=== PATIENT | female | born 1980 | race Caucasian/White ===

== ENCOUNTER → 2022-01-27 | Outpatient (CLI) | payer BC ==
[2015-07-19 21:32] VITALS: BP 119/61
[~2022-01-27] MED LIST: HYDR-3164 PO; NAPR-683 PO; NITR100C62 PO
--- NOTE | 2022-01-27 16:26 | KCIC ---
CT abdomen and pelvis without contrast PQRS statement: CT scans at this facility use dose reduction including either automated exposure cont rol, iterative reconstructions, and /or weight based radiation dosing via mA and kV modification when appropriate to reduce radiation dose to as low as reasonably achievable. HISTORY: Acute right flank pain. COMPARISON: CT abdomen March 11, 2013. Abdomen findings: Pancreas, spleen, liver, gallbladder, adrenal glands unremarkable. No urinary calcu li, hydronephrosis or perinephric stranding edema. Appendix is normal. No obstruction or inflammation GI tract. Lung bases and bones are unremarkable. Pelvis findings: Retroverted uterus. Ovaries poorly visualized due to surrounding pelvic bowel loops. No bladder calculi. Pelvic phleboliths. Rectum and bones are unremarkable. No pelvic fluid. IMPRESSION: No acute process. Appendix is normal. No urinary calculi or hydronephrosis. Electronically signed by: August Patel MD (01/27/2022 4:24 PM) [facility]
== END ==
LOC: KCIC CT 13:15
PROVIDERS: ATTEND Nurse Practitioner
DX: N85.4 Malposition of uterus (principal)
CPT/HCPCS: 74176

== ENCOUNTER 2022-02-14 08:41 | Emergency (ER) | payer BC ==
[~2022-02-14] VITALS: Ht 172.7 cm; Wt 68.0 kg
[2022-02-14] MEDS ORDERED: IV NORMAL SALINE 1000ML BAG 1,000 ML IV SCH (09:15)
[2022-02-14 09:42] LABS: BASO % 1 % (0-3); EOS # 0.3 x10^3/uL (0.0-0.7); EOS % 5 % (0-3); HEMATOCRIT 39.6 % (36.0-47.0); HEMOGLOBIN 13.3 g/dL (12.0-15.5); LYMPH # 0.9 x10^3/uL (1.0-4.8); LYMPH % 18 % (24-48); MEAN CORPUSCULAR HEMOGLOBIN 30 pg (25-35); MEAN CORPUSCULAR HGB CONC 34 g/dL (31-37); MEAN CORPUSCULAR VOLUME 90 fL (79-100); MONO # 0.7 x10^3/uL (0.0-1.1); MONO % 15 % (0-9); NEUT # 2.9 x10^3/uL (1.8-7.7); NEUT % 61 % (31-73); PLATELET COUNT 200 x10^3/uL (140-400); RED BLOOD COUNT 4.38 x10^6/uL (3.50-5.40); RED CELL DISTRIBUTION WIDTH 13.2 % (11.5-14.5); WHITE BLOOD COUNT 4.8 x10^3/uL (4.0-11.0)
[2022-02-14 09:53] LABS: CALCIUM 8.9 mg/dL (8.5-10.1); GFR 61.1; POTASSIUM 4.1 mmol/L (3.5-5.1)
[2022-02-14 09:58] LABS: ALBUMIN 3.6 g/dL (3.4-5.0); TOTAL BILIRUBIN 0.6 mg/dL (0.2-1.0); TOTAL PROTEIN 7.2 g/dL (6.4-8.2)
--- NOTE | 2022-02-14 10:08 | PHYS DOC ---
Past Medical History Past Medical History: Kidney Stone, UTI Past Surgical History: No Surgical History Additional Past Surgical Histo: kidney stone-laser, d&C Smoking Status: Never Smoker Alcohol Use: None Drug Use: None General Adult EDM: Chief Complaint: ABDOMINAL PAIN HPI: HPI: Patient is a 41 year old female who presents with right lower quadrant and right flank pain that at times will go into the right lower leg for the last month. She saw her PCP who 2 weeks ago did a [address] scan and it was negative for appendicitis or kidney stone. He states is a dull type pain that is 7 out of 10 and is there continuously. She has been taking ibuprofen. Currently rates her pain a 7 out of 10. History of kidney stones, 7 pregnancies and a D&C. Denies nausea, vomiting, diarrhea, fever, chest pain, shortness of breath, urinary symptoms, blood in her urine. Review of Systems: Review of Systems: Constitutional: Denies fever or chills. [] Eyes: Denies change in visual acuity. [] HENT: Denies nasal congestion or sore throat. [] Respiratory: Denies cough or shortness of breath. [] Cardiovascular: Denies chest pain or edema. [] GI: + Right lower quadrant abdominal pain, denies nausea, vomiting, bloody stools or diarrhea. [] : Denies dysuria. [] Musculoskeletal: + Right flank back pain or denies joint pain. [] Integument: Denies rash. [] Neurologic: Denies headache, focal weakness or sensory changes. [] Endocrine: Denies polyuria or polydipsia. [] Lymphatic: Denies swollen glands. [] Psychiatric: Denies depression or anxiety. [] Heart Score: C/O Chest Pain: No Current Medications: Current Medications Medications (Trade) Dose Ordered Sig/Emanuel Start Time Stop Time Status Last Admin Dose Admin Sodium Chloride 1,000 ml @ 1,000 mls/hr Q1H 02/14/22 09:15 02/14/22 10:14 02/14/22 09:15 1,000 MLS/HR Allergies: Allergies: Allergies Coded Allergies Type Severity Reaction Last Updated Verified No Known Drug Allergies 07/17/15 No Physical Exam: PE: Constitutional: Well developed, well nourished, no acute distress, non-toxic appearance. [] HENT: Normocephalic, atraumatic, bilateral external ears normal, oropharynx moist, no oral exudates, nose normal. [] Eyes: PERRLA, EOMI, conjunctiva normal, no discharge. [] Neck: Normal range of motion, no tenderness, supple, no stridor. [] Cardiovascular:Heart rate regular rhythm, no murmur [] Lungs & Thorax: Bilateral breath sounds clear to auscultation [] Abdomen: Bowel sounds normal, soft, no tenderness, no masses, no pulsatile masses. [] Skin: Warm, dry, no erythema, no rash. [] Back: No tenderness, no CVA tenderness. [] Extremities: No tenderness, no cyanosis, no clubbing, ROM intact, no edema. [] Neurologic: Alert and oriented X 3, normal motor function, normal sensory function, no focal deficits noted. [] Psychologic: Affect normal, judgement normal, mood normal. [] Normal physical exam Current Patient Data: Labs: Laboratory Tests Test 02/14/22 09:18 02/14/22 09:30 POC Urine HCG, Qualitative Hcg negative (Negative) White Blood Count 4.8 x10^3/uL (4.0-11.0) Red Blood Count 4.38 x10^6/uL (3.50-5.40) Hemoglobin 13.3 g/dL (12.0-15.5) Hematocrit 39.6 % (36.0-47.0) Mean Corpuscular Volume 90 fL (79-100) Mean Corpuscular Hemoglobin 30 pg (25-35) Mean Corpuscular Hemoglobin Concent 34 g/dL (31-37) Red Cell Distribution Width 13.2 % (11.5-14.5) Platelet Count 200 x10^3/uL (140-400) Neutrophils (%) (Auto) 61 % (31-73) Lymphocytes (%) (Auto) 18 % (24-48) L Monocytes (%) (Auto) 15 % (0-9) H Eosinophils (%) (Auto) 5 % (0-3) H Basophils (%) (Auto) 1 % (0-3) Neutrophils # (Auto) 2.9 x10^3/uL (1.8-7.7) Lymphocytes # (Auto) 0.9 x10^3/uL (1.0-4.8) L Monocytes # (Auto) 0.7 x10^3/uL (0.0-1.1) Eosinophils # (Auto) 0.3 x10^3/uL (0.0-0.7) Basophils # (Auto) 0.0 x10^3/uL (0.0-0.2) Sodium Level 141 mmol/L (136-145) Potassium Level 4.1 mmol/L (3.5-5.1) Chloride Level 105 mmol/L (98-107) Carbon Dioxide Level 27 mmol/L (21-32) Anion Gap 9 (6-14) Blood Urea Nitrogen 12 mg/dL (7-20) Creatinine 1.0 mg/dL (0.6-1.0) Estimated GFR (Cockcroft-Gault) 61.1 BUN/Creatinine Ratio 12 (6-20) Glucose Level 91 mg/dL (70-99) Calcium Level 8.9 mg/dL (8.5-10.1) Total Bilirubin 0.6 mg/dL (0.2-1.0) Aspartate Amino Transferase (AST) 16 U/L (15-37) Alanine Aminotransferase (ALT) 14 U/L (14-59) Alkaline Phosphatase 84 U/L (46-116) Total Protein 7.2 g/dL (6.4-8.2) Albumin 3.6 g/dL (3.4-5.0) Albumin/Globulin Ratio 1.0 (1.0-1.7) Lipase 109 U/L (73-393) Laboratory Tests 02/14/22 09:30 Laboratory Tests 02/14/22 09:30 Vital Signs: Vital Signs Date Time Temp Pulse Resp B/P (MAP) Pulse Ox O2 Delivery O2 Flow Rate FiO2 02/14/22 09:16 98.0 87 20 109/64 (79) 98 98.0 EKG: EKG: [] Radiology/Procedures: Radiology/Procedures: [] Impression: [facility] [address] [place] [address] IMAGING REPORT Signed PATIENT: CARMEN EGAN ACCOUNT: [id number] : 1980 LOCATION: ER AGE: 41 SEX: F EXAM STATUS: REG ER ORD. PHYSICIAN: PARRISH BENJAMIN APRN REASON: flank and rlq pain PROCEDURE: CT ABDOMEN PELVIS WO CONTRAST INDICATION: Reason: flank and rlq pain / Spl. Instructions: / History: COMPARISON: December 2021 TECHNIQUE: Axial CT images were obtained through the abdomen and pelvis without intravenous contrast. One or more of the following individualized dose reduction techniques were utilized for this examination: 1. Automated exposure control; 2. Adjustment of the mA and/or kV according to patient size; 3. Use of iterative reconstruction technique. FINDINGS: Calcified granuloma lung base. Vascular: No abdominal aortic aneurysm. Hepatobiliary: No intrahepatic biliary duct dilation. Pancreas: Limited assessment secondary to lack of contrast. Spleen: Calcified granulomas. Renal/Bladder: Urinary bladder is partially distended. Distention of the right greater than left extrarenal pelvis. Calcification in the right hemipelvis but this was also present on prior and likely secondary to a phlebolith. Questionable 2 mm calcification at the right distal ureter. Gastrointestinal: Nonspecific haziness to a portion of the mesentery. Appendix is not well seen which could be secondary to lack of contrast and lack of intra- abdominal fat. No dilated loops of bowel to suggest obstruction. IMPRESSION: * There is distention of the right greater than left extrarenal pelvis with a punctate high density focus near the expected location of the right distal ureter. This is a questionable finding but a tiny right distal ureter stone could have this appearance given the dilatation of the right renal pelvis. Electronically signed by: Andie Patten MD (02/14/2022 10:20 AM) [id number] DICTATED and SIGNED BY: ANDIE PATTEN MD DATE: 02/14/22 1005 Course & Med Decision Making: Course & Med Decision Making Pertinent Labs and Imaging studies reviewed. (See chart for details) See HPI. Alert and oriented x4. Ambulatory steady gait. Skin pink warm and dry. No CVA tenderness. Abdomen is soft and nontender. Vital signs are within normal limits. She is afebrile. She states she has a very high pain tolerance. CT is showing * There is distention of the right greater than left extrarenal pelvis with a punctate high density focus near the expected location of the right distal ureter. This is a questionable finding but a tiny right distal ureter stone could have this appearance given the dilatation of the right renal pelvis. Ultrasound showed no acute findings. Blood work is unremarkable. Patient will be given Flomax, pain medication and a follow-up with urology. [] Fátima Disclaimer: Fátima Disclaimer: This electronic medical record was generated, in whole or in part, using a voice recognition dictation system. Departure Departure Impression: Primary Impression: Kidney stone on right side Disposition: HOME / SELF CARE / HOMELESS Condition: STABLE Referrals: ETHEL GALLAGHER MD (PCP) HUI MOTA MD Patient Instructions: Diet for Kidney Stones, Kidney Stones Additional Instructions: Drink plenty of fluids to stay hydrated and to help move that kidney stone out. Take medication as prescribed and with food. Follow-up with urology or your primary care doctor this coming week. He began running a fever or vomiting or having more severe pain can was return to the emergency room. Scripts Ibuprofen (IBUPROFEN) 600 Mg Tablet 600 MG PO PRN Q6HRS PRN for INFLAMMATION, #30 TAB Prov: PARRISH BENJAMIN APRN 02/14/22 Tamsulosin Hcl (FLOMAX) 0.4 Mg Cap.er.24h 1 CAP PO DAILY, #30 CAP Prov: PARRISH BENJAMIN APRN 02/14/22 Hydrocodone Bit/Acetaminophen (HYDROCODONE-APAP 5-325 ) 1 Tab Tablet 1 TAB PO PRN Q6HRS PRN for PAIN, #15 TAB 0 Refills Prov: PARRISH BENJAMIN APRN 02/14/22 PARRISH BENJAMIN APRN February 14, 2022 10:08
[2022-02-14 10:12] LABS: BACTERIA,URINE 0 /HPF (0-FEW); RBC,URINE OCC /HPF (0-2); WBC,URINE 0 /HPF (0-4)
--- NOTE | 2022-02-14 10:22 | RAD ---
INDICATION: Reason: flank and rlq pain / Spl. Instructions: / History: COMPARISON: December 2021 TECHNIQUE: Axial CT images were obtained through the abdomen and pelvis without intravenous contrast. One or more of the following individualized dose reduction techniques were utilized for this examinat ion: 1. Automated exposure control; 2. Adjustment of the mA and/or kV according to patient size; 3 . Use of iterative reconstruction technique. FINDINGS: Calcified granuloma lung base. Vascular: No abdominal aortic aneurysm. Hepatobiliary: No intrahepatic biliary duct dilation. Pancreas: Limited assessment secondary to lack of contrast. Spleen: Calcified granulomas. Renal/Bladder: Urinary bladder is partially distended. Distention of the right greater than left extr arenal pelvis. Calcification in the right hemipelvis but this was also present on prior and likely se condary to a phlebolith. Questionable 2 mm calcification at the right distal ureter. Gastrointestinal: Nonspecific haziness to a portion of the mesentery. Appendix is not well seen which could be secondary to lack of contrast and lack of intra-abdominal fat. No dilated loops of bowel to suggest obstruction. IMPRESSION: * There is distention of the right greater than left extrarenal pelvis with a punctate high density focus near the expected location of the right distal ureter. This is a questionable finding but a ti ny right distal ureter stone could have this appearance given the dilatation of the right renal pelvi s. Electronically signed by: Hank Terrazas MD (02/14/2022 10:20 AM) [id number]
[2022-02-14] MEDS ORDERED: KETOROLAC 15 MG/ML VIAL. IVP ONE (10:45)
[2022-02-14 12:34] VITALS: BP 136/78
[2022-02-14] MEDS ORDERED: TAMSULOSIN 0.4 MG CAP.ER.24H. PO ONE (14:30)
[2022-02-14] MEDS ORDERED: HYDR-2761 PO (14:32)
[2022-02-14] MEDS ORDERED: TAMS0.4C97 PO (14:32)
[2022-02-14] MEDS ORDERED: IBUP-1007 PO (14:32)
[2022-02-14] MEDS ORDERED: fentaNYL PF VIAL 100 MCG/2 ML VIAL IVP ONE (14:45)
--- NOTE | 2022-02-15 07:46 | RAD ---
US PELVIS W/TV History: RLQ pain, please check ovaries Comparison: None. Technique: Sonographic examination of the pelvis was performed with transabdominal and transvaginal t echnique. Findings: Uterus- Uterine parenchyma: Homogeneous without fibroids. Uterine measurements: 6.6 x 5.9 x 3.4 cm Cervix: Unremarkable. Endometrium- Endometrial Stripe: No abnormal fluid collections in the endometrial cavity, no obvious mass, and no abnormal blood flow within the endometrium by Doppler. Thickness: 0.8 cm. Adnexa- Right Ovary: Identified and appears normal. Normal follicles with dominant follicle measuring 1.4 cm diameter. Size: 3.8 x 2.3 x 2.0 cm Doppler: Normal. Left Ovary: Identified and appears normal. Normal follicles. Size: 3.4 x 0.8 x 1.0 cm Doppler: Normal. Other: No abnormal adnexal masses. No abnormal free fluid in the pelvis. Impression: 1. Unremarkable uterus and ovaries. 2. No pelvic free fluid to suggest acute inflammatory changes. The appendix is not imaged. Electronically signed by: Pako Taylor MD (02/14/2022 11:46 AM) [id number]
== END 2022-02-14 14:54 | disposition home or self-care (01) ==
LOC: ER 08:41
DX: N20.0 Calculus of kidney (principal); Z87.440 Personal history of urinary (tract) infections
CPT/HCPCS: 36415; 74176; 76830; 76856; 80053; 81001; 81025; 83690; 85025; 96361; 96374; 96375; 99284; J1885; J3010; J7030; 99285